=== PATIENT | female | born 1985 | race African-American/Black ===

== ENCOUNTER 2016-06-26 21:50 | Emergency (ER) | payer OTHER ==
[~2016-06-26] VITALS: Ht 152.4 cm; Wt 132.4 kg
[2016-06-26 21:53] VITALS: BP 163/105
[2016-06-26] MEDS ORDERED: PROMETHAZINE D480 ML GT (22:30)
[2016-06-26] MEDS ORDERED: PREDNISONE 20 M20 MG PO (22:30)
[2016-06-26] MEDS ORDERED: AFRIN15 ML NS (22:30)
== END 2016-06-26 23:14 | disposition home or self-care (01) ==
LOC: ER 21:50
DX: J20.8 Acute bronchitis due to other specified organisms (principal); F17.210 Nicotine dependence, cigarettes, uncomplicated; Z86.2 Personal history of diseases of the blood and blood-forming organs and certain disorders involving the immune mechanism

== ENCOUNTER 2019-11-29 12:23 | Emergency (ER) | payer OTHER ==
[~2019-11-29] VITALS: Ht 152.4 cm; Wt 127.0 kg
[~2019-11-29 12:23] MED LIST: AFRIN15 ML NS; PREDNISONE 20 M20 MG PO; PROMETHAZINE D480 ML GT
[2019-11-29] MEDS ORDERED: PROMETH-CODEIN 65 ML PO (12:50)
[2019-11-29 13:30] VITALS: BP 154/89
== END 2019-11-29 13:31 | disposition home or self-care (01) ==
LOC: ER 12:23
DX: J02.0 Streptococcal pharyngitis (principal); F17.210 Nicotine dependence, cigarettes, uncomplicated; Z79.899 Other long term (current) drug therapy; Z86.2 Personal history of diseases of the blood and blood-forming organs and certain disorders involving the immune mechanism